=== PATIENT | female | born 1995 | race Caucasian/White ===

== ENCOUNTER 2022-03-23 02:08 | Emergency (ER) | payer OTHER ==
[~2022-03-23] VITALS: Ht 154.9 cm; Wt 64.0 kg
[2022-03-23] MEDS ORDERED: ULTRAM50 MG PO (02:29)
[2022-03-23] MEDS ORDERED: BACTRIM DS TAB1 EACH PO (02:29)
== END 2022-03-23 02:53 | disposition home or self-care (01) ==
LOC: ED 02:08
DX: J34.0 Abscess, furuncle and carbuncle of nose (principal); Z88.0 Allergy status to penicillin
CPT/HCPCS: 99283; A9270

== ENCOUNTER 2022-04-25 21:14 | Emergency (ER) | payer OTHER ==
[~2022-04-25] VITALS: Ht 154.9 cm; Wt 58.9 kg
[~2022-04-25 21:14] MED LIST: BACTRIM DS TAB1 EACH PO; ULTRAM50 MG PO
[2022-04-25] MEDS ORDERED: CLINDAMYCIN HC300 MG PO (22:32)
== END 2022-04-25 22:45 | disposition home or self-care (01) ==
LOC: ED 21:14
DX: K04.7 Periapical abscess without sinus (principal); S60.221A Contusion of right hand, initial encounter; W22.8XXA Striking against or struck by other objects, initial encounter; Z88.0 Allergy status to penicillin
CPT/HCPCS: 73130

== ENCOUNTER 2022-09-10 00:42 | Emergency (ER) | payer OTHER ==
[~2022-09-10] VITALS: Ht 154.9 cm; Wt 63.5 kg
[~2022-09-10 00:42] MED LIST changes: +CLINDAMYCIN HC300 MG PO
== END 2022-09-10 01:36 | disposition home or self-care (01) ==
LOC: ED 00:42
DX: S21.0 Open wound of breast (principal); S40.022A Contusion of left upper arm, initial encounter; Z88.0 Allergy status to penicillin; Y04.8XXA Assault by other bodily force, initial encounter
CPT/HCPCS: 99283

== ENCOUNTER 2025-04-09 22:14 | Emergency (ER) | payer OTHER ==
[~2025-04-09] VITALS: Ht 157.5 cm; Wt 75.0 kg
[2025-04-09] MEDS ORDERED: OMEPRAZOLE20 MG PO (22:58)
[2025-04-09 23:14] VITALS: BP 130/92
[2025-04-09] MEDS ORDERED: NEOMYCIN/POLYMYXIN/HYDROCORT 10 ML HOME.PACK OTIC ONE (23:15)
== END 2025-04-09 23:14 | disposition home or self-care (01) ==
LOC: ED 22:14
DX: H60.91 Unspecified otitis externa, right ear (principal); Z88.0 Allergy status to penicillin; Z79.899 Other long term (current) drug therapy
CPT/HCPCS: 99282